=== PATIENT | male | born 1965 | race Caucasian/White ===

== ENCOUNTER 2024-04-01 00:36 | Emergency (ER) | payer OTHER ==
[2024-04-01 01:02] VITALS: BP 162/116; PULSE 102; RESP 20; TEMP 97.8
--- NOTE | 2024-04-01 01:28 | ED ---
Alcohol HPI - General Chief Complaint: Head Injury Stated Complaint: Head Lac, Usp Clearance Time Seen by Provider: 04/01/24 01:19 Source: patient, RN notes reviewed, old records reviewed Mode of arrival: ambulatory Limitations: no limitations - History of Present Illness Initial Comments: This is a 59-year-old male to the ER for evaluation of unknown head injury with occipital head laceration likely positive intoxication minimal bleeding but on reliable story. Patient is brought in by the police department for usp clearance Complaint: alcohol intoxication (Injury) Last Drink: unknown -: hour(s) Previous Visits for Alcohol Intoxication?: No Recent Trauma: Yes Associated Symptoms: denies other symptoms Treatments Prior to Arrival: none Chronic Alcohol Use: Yes - Related Data Allergies Allergy/AdvReac Type Severity Reaction Status Date / Time No Known Allergies Allergy Verified 04/01/24 00:55 Review of Systems ROS Statement: Those systems with pertinent positive or pertinent negative responses have been documented in the HPI. ROS Other: All systems not noted in ROS Statement are negative. Past Medical History Past Medical History: Unable to Obtain History of Any Multi-Drug Resistant Organisms: None Reported Past Surgical History: Unable to Obtain Past Psychological History: No Psychological Hx Reported Smoking Status: Current every day smoker Past Alcohol Use History: Heavy Past Drug Use History: None Reported General Exam Limitations: no limitations General appearance: alert, in no apparent distress, appears intoxicated Head exam: Present: atraumatic, normocephalic, normal inspection, other (Scalp laceration) Eye exam: Present: normal appearance, PERRL, EOMI. Absent: scleral icterus, conjunctival injection, periorbital swelling ENT exam: Present: normal exam, mucous membranes moist Neck exam: Present: normal inspection. Absent: tenderness, meningismus, lymphadenopathy Respiratory exam: Present: normal lung sounds bilaterally. Absent: respiratory distress, wheezes, rales, rhonchi, stridor Cardiovascular Exam: Present: regular rate, normal rhythm, normal heart sounds. Absent: systolic murmur, diastolic murmur, rubs, gallop, clicks GI/Abdominal exam: Present: soft, normal bowel sounds. Absent: distended, tenderness, guarding, rebound, rigid Extremities exam: Present: normal inspection, full ROM, normal capillary refill. Absent: tenderness, pedal edema, joint swelling, calf tenderness Back exam: Present: normal inspection Neurological exam: Present: alert, oriented X3, CN II-XII intact Psychiatric exam: Present: normal affect, normal mood Skin exam: Present: warm, dry, intact, normal color. Absent: rash Course Vital Signs 04/01/24 00:56 Temperature 97.8 F Pulse Rate 102 H Respiratory 20 Rate Blood Pressure 162/116 O2 Sat by Pulse 94 L Oximetry - Reevaluation(s) Reevaluation #1: 04/01/24 03:47 Medical records reviewed Reevaluation #2: 04/01/24 03:47 Patient has no change in symptoms Reevaluation #3: 04/01/24 03:47 Patient informed of results questions answered Reevaluation #4: Was pt. sent in by a medical professional or institution (, JEANNIE, NETSUITE CONSULTANT, urgent care, hospital, or detention...) When possible be specific @ -no Did you speak to anyone other than the patient for history (EMS, parent, family, police, friend...)? What history was obtained from this source @ -no Did you review nursing and triage notes (agree or disagree)? Why? @ -agree Are old charts reviewed (outside hosp., previous admission, EMS record, old EKG, old radiological studies, urgent care reports/EKG's, detention records)? Report findings @ -yes Differential Diagnosis (chest pain, altered mental status, abdominal pain women, abdominal pain men, vaginal bleeding, weakness, fever, dyspnea, syncope, headache, dizziness, GI bleed, back pain, seizure, CVA, palpatations, mental health, musculoskeletal)? @ -prior EKG interpreted by me (3pts min.). @ -yes X-rays interpreted by me (1pt min.). @ -yes negative for acute disease CT interpreted by me (1pt min.). @ -no U/S interpreted by me (1pt. min.). @ -no What testing was considered but not performed or refused? (CT, X-rays, U/S, labs)? Why? @ -none What meds were considered but not given or refused? Why? @ -none Did you discuss the management of the patient with other professionals (professionals i.e. JEANNIE Suarez, NETSUITE CONSULTANT, lab, RT, psych nurse, case management social worker, sock folder, teacher, hospital chief financial officer, residential case manager)? Give summary @ -no Was smoking cessation discussed for >3mins.? @ -no Was critical care preformed (if so, how long)? @ -no Were there social determinants of health that impacted care today? How? (Homelessness, low income, unemployed, alcoholism, drug addiction, transportation, low edu. Level, literacy, decrease access to med. care, usp, rehab)? @ -none Was there de-escalation of care discussed even if they declined (Discuss DNR or withdrawal of care, Hospice)? DNR status @ -no What co-morbidities impacted this encounter? (DM, HTN, Smoking, COPD, CAD, Cancer, CVA, ARF, Chemo, Hep., AIDS, mental health diagnosis, sleep apnea, morbid obesity)? @ -none Was patient admitted / discharged? Hospital course, mention meds given and route, prescriptions, significant lab abnormalities, going to OR and other pertinent info. @ - Undiagnosed new problem with uncertain prognosis? @ -no Drug Therapy requiring intensive monitoring for toxicity (Heparin, Nitro, Insulin, Cardizem)? @ -no Were any procedures done? @ -no Diagnosis/symptom? @ - Acute, or Chronic, or Acute on Chronic? @ -Acute Uncomplicated (without systemic symptoms) or Complicated (systemic symptoms)? @ -Complicated Side effects of treatment? @ -no Exacerbation, Progression, or Severe Exacerbation? @ -exacerbation Poses a threat to life or bodily function? How? (Chest pain, USA, OR, pneumonia, PE, COPD, DKA, ARF, appy, cholecystitis, CVA, Diverticulitis, Homicidal, Suicidal, threat to staff... and all critical care pts) @ -yes Procedures - Laceration Laceration #1 Consent Obtained: verbal consent Site: scalp Size (cm): 2 Description: linear Depth: simple, single layer Size of Sutures: other (Staple) Technique: simple, interrupted Complications: pain Medical Decision Making - Medical Decision Making 59 male to ER with occipital scalp laceration which is repaired here with a staple, patient has normal CT scan here in the ER and can be discharged, clear for incarceration - Radiology Data Radiology results: report reviewed (CT brain C-spine is negative for acute disease), image reviewed Disposition Clinical Impression: Closed head injury, Laceration of head Disposition: HOME SELF-CARE Condition: Good Instructions (If sedation given, give patient instructions): Head Injury (ED), Head Laceration (ED) Is patient prescribed a controlled substance at d/c from ED?: No Referrals: None,Stated [REFERRING] - 1-2 days Time of Disposition: 02:45
--- NOTE | 2024-04-01 02:31 | CT ---
EXAM: CT Head Without Intravenous Contrast CLINICAL HISTORY: ITS.REASON CT Reason: pain TECHNIQUE: Axial computed tomography images of the head/brain without intravenous contrast. CTDI is 45.2 mGy and DLP is 1113 mGy-cm. This CT exam was performed using one or more of the following dose reduction techniques: automated exposure control, adjustment of the mA and/or kV according to patient size, and/or use of iterative reconstruction technique. COMPARISON: No relevant prior studies available. FINDINGS: Brain: Mild parenchymal volume loss. Mild chronic small vessel ischemic change. Adams-white matter differentiation maintained. No hemorrhage, mass effect, parenchymal edema, or midline shift. Ventricles: Unremarkable. No hydrocephalus. Bones/joints: Unremarkable. No acute fracture. Soft tissues: Unremarkable. Vasculature: Intracranial atherosclerosis. Sinuses: Unremarkable as visualized. Mastoid air cells: Unremarkable as visualized. No mastoid effusion. IMPRESSION: No acute intracranial process. EXAM: CT Cervical Spine Without Intravenous Contrast CLINICAL HISTORY: ITS.REASON CT Reason: pain TECHNIQUE: Axial computed tomography images of the cervical spine without intravenous contrast. CTDI is 9.4 mGy and DLP is 296.4 mGy-cm. This CT exam was performed using one or more of the following dose reduction techniques: automated exposure control, adjustment of the mA and/or kV according to patient size, and/or use of iterative reconstruction technique. COMPARISON: No relevant prior studies available. FINDINGS: Vertebrae: Unremarkable. No acute fracture. No traumatic subluxation. Discs/spinal canal/neural foramina: Mild disc and uncovertebral joint degeneration in the cervical spine. No significant central canal stenosis. Mild multilevel foraminal narrowing. Soft tissues: Unremarkable. Vasculature: Carotid calcifications. Lung apices: Central lobular emphysema. Calcified granuloma right upper lobe. IMPRESSION: No acute findings in the cervical spine.
== END 2024-04-01 03:37 | disposition home or self-care (01) ==
LOC: EC 00:36
DX: S01.01XA Laceration without foreign body of scalp, initial encounter (principal); F17.200 Nicotine dependence, unspecified, uncomplicated; X58.XXXA Exposure to other specified factors, initial encounter
CPT/HCPCS: 12001; 70450; 72125; 99283

== ENCOUNTER 2024-04-08 08:04 | Observation (INO) | payer OTHER ==
--- NOTE | 2024-04-08 08:30 | ED ---
General Adult HPI - General Chief complaint: Alcohol Stated complaint: Mental Health/Detox Time Seen by Provider: 04/08/24 08:21 Source: patient, police, RN notes reviewed Mode of arrival: ambulatory Limitations: no limitations - History of Present Illness Initial comments: This is a 69-year-old male who presents to the emergency department for increased hallucinations and alcohol withdrawal. Patient presents with a chief digital officer from [facility]. He has been in their custody for the last 4 days. Patient has reportedly been experiencing increased hallucinations as a result of alcohol withdrawals. Patient states t hat it has been 3 weeks since his last drink, however he was arrested for operating a vehicle while intoxicated. He is currently on the Valium protocol but seems to be getting worse. He is also not sleeping. He was also started on clonidine as well. Patient has no known medical history or known history of mental health problems. asset protection officer states that they wanted him evaluated for Wernicke Korsakoff syndrome. - Related Data Home Medications Medication Instructions Recorded Confirmed Thiamine [Vitamin B-1] 100 mg PO DAILY 04/08/24 04/08/24 cloNIDine HCL 0.1 mg PO TID PRN 04/08/24 04/08/24 diazePAM 10 mg PO BID 04/08/24 04/08/24 Allergies Allergy/AdvReac Type Severity Reaction Status Date / Time No Known Allergies Allergy Verified 04/08/24 14:22 Review of Systems ROS Statement: Those systems with pertinent positive or pertinent negative responses have been documented in the HPI. ROS Other: All systems not noted in ROS Statement are negative. Past Medical History Past Medical History: No Reported History History of Any Multi-Drug Resistant Organisms: None Reported Past Surgical History: Hernia Repair Past Psychological History: Unable to Obtain Smoking Status: Current some day smoker Past Alcohol Use History: Abuse, Daily, Heavy Past Drug Use History: None Reported General Exam Limitations: no limitations General appearance: alert, in no apparent distress Head exam: Present: atraumatic, normocephalic, normal inspection Eye exam: Present: normal appearance, PERRL, EOMI. Absent: scleral icterus, conjunctival injection, periorbital swelling Respiratory exam: Present: normal lung sounds bilaterally. Absent: respiratory distress, wheezes, rales, rhonchi, stridor Cardiovascular Exam: Present: regular rate, normal rhythm, normal heart sounds. Absent: systolic murmur, diastolic murmur, rubs, gallop, clicks Neurological exam: Present: alert Psychiatric exam: Present: normal affect, normal mood Skin exam: Present: warm, dry, intact, normal color. Absent: rash Course Vital Signs 04/08/24 04/08/24 04/08/24 08:11 09:18 11:08 Temperature 98.0 F Pulse Rate 88 72 Respiratory 18 18 Rate Blood Pressure 131/97 147/109 91/71 O2 Sat by Pulse 98 96 Oximetry 04/08/24 04/08/24 12:42 14:51 Temperature 98 F 98 F Pulse Rate 90 90 Respiratory 18 18 Rate Blood Pressure 131/94 124/78 O2 Sat by Pulse 98 99 Oximetry Medical Decision Making - Medical Decision Making This is a 69 year old male who presents to the emergency department for halluci nations and alcohol withdrawals. Was pt. sent in by a medical professional or institution? @ -[facility] Did you speak to anyone other than the patient for history? @ -The chief digital officer and documentation from [facility] provided the majority of the information. Did you review nursing and triage notes? @ -Yes, and I agree, it is accurate with regards to the patient's symptoms. Were old charts reviewed? @ -No Differential Diagnosis? @ -Differential Alcohol Withdrawals Sympathomimetic syndrome, anti-muscarinic syndrome, serotonin syndrome, neuroleptic malignant syndrome, thyrotoxicosis, encephalitis, acute psychosis, hypoglycemia, trauma, sepsis. This is not meant to be an all-inclusive list. EKG interpreted by me (3pts min.)? @ -EKG interpreted by me demonstrating the following: Sinus rhythm. Ventricular rate 69 bpm, NC interval 173 ms, QRS duration 86 ms, QTc 442 ms. X-rays interpreted by me (1pt min.)? @ -Not obtained CT interpreted by me (1pt min.)? @ -Not obtained U/S interpreted by me (1pt. min.)? @ -Not obtained What testing was considered but not performed? (CT, X-rays, U/S, labs)? Why? @ -None What meds were considered but not given? Why? @ -None Did you discuss the management of the patient with other professionals? @ -Yes, Dr. Torres, who accepts the patient for admission. Did you reconcile home meds? @ -No Was smoking cessation discussed for >3mins.? @ -No Was critical care preformed (if so, how long)? @ -No Were there social determinant of health that impacted care today? How? (Homelessness, low income, unemployed, alcoholism, drug addiction, transportation, low edu. Level, literacy, decrease access to med. care, alf, rehab)? @ -Alcoholism, contributing to the withdrawal symptoms that the patient is experiencing today Was there de-escalation of care discussed even if they declined? (Discuss DNR or withdrawal of care, Hospice)? @ -No What co-morbidities impacted this encounter? (DM, HTN, Smoking, COPD, CAD, Cancer, CVA, Hep., AIDS, mental health diagnosis, sleep apnea, morbid obesity)? @ -Alcoholism Was patient admitted / discharged? @ -Admitted. Lab work demonstrates hyponatremia with a sodium of 129. LFTs are mildly elevated likely secondary to alcohol abuse. Urinalysis negative for signs of infection. Urine drug screen positive for benzodiazepines, which is consistent with patient receiving Valium for alcohol withdrawals in the alf. Patient was actively hallucinating in the emergency department and appeared to be disoriented and confused. He has also been putting multiple objects in his mouth. Given that his symptoms seem to be worsening despite use of Valium, patient admitted to medicine for alcohol withdrawal delirium. [facility] protocol initiated. Case discussed with ED attending, Dr. Petersen. Undiagnosed new problem with uncertain prognosis? @ -None Drug Therapy requiring intensive monitoring for toxicity (Heparin, Nitro, In sulin, Cardizem)? @ -None Were any procedures done? @ -None Diagnosis/symptom? @ -Alcohol withdrawal delirium Acute, or Chronic, or Acute on Chronic? @ -Acute Uncomplicated (without systemic symptoms) or Complicated (systemic symptoms)? @ -Complicated Side effects of treatment? @ -None Exacerbation, Progression, or Severe Exacerbation] @ -Not applicable Poses a threat to life or bodily function? @ -Yes, can lead to DTs which can be fatal. - Lab Data Result diagrams: 04/08/24 08:24 04/08/24 08:24 Lab Results 04/08/24 04/08/24 04/08/24 Range/Units 08:24 08:24 08:24 WBC 7.0 (3.8-10.6) k/uL RBC 4.16 L (4.30-5.90) m/uL Hgb 14.3 (13.0-17.5) gm/dL Hct 41.8 (39.0-53.0) % MCV 100.7 H (80.0-100.0) fL MCH 34.5 (25.0-35.0) pg MCHC 34.3 (31.0-37.0) g/dL RDW 12.5 (11.5-15.5) % Plt Count 209 (150-450) k/uL MPV 7.6 Neutrophils % 69 % Lymphocytes % 17 % Monocytes % 11 % Eosinophils % 1 % Basophils % 0 % Neutrophils # 4.8 (1.3-7.7) k/uL Lymphocytes # 1.2 (1.0-4.8) k/uL Monocytes # 0.7 (0-1.0) k/uL Eosinophils # 0.1 (0-0.7) k/uL Basophils # 0.0 (0-0.2) k/uL PT 10.9 (10.0-12.5) sec INR 1.0 (<1.2) Sodium 129 L (137-145) mmol/L Potassium 4.2 (3.5-5.1) mmol/L Chloride 98 (98-107) mmol/L Carbon Dioxide 26 (22-30) mmol/L Anion Gap 5 mmol/L BUN 10 (9-20) mg/dL Creatinine 0.67 (0.66-1.25) mg/dL Est GFR (CKD-EPI)AfAm >90 (>60 ml/min/1.73 sqM) Est GFR (CKD-EPI)NonAf >90 (>60 ml/min/1.73 sqM) Glucose 95 (74-99) mg/dL Calcium 9.6 (8.4-10.2) mg/dL Phosphorus 4.4 (2.5-4.5) mg/dL Magnesium 1.8 (1.6-2.3) mg/dL Total Bilirubin 1.6 H (0.2-1.3) mg/dL AST 70 H (17-59) U/L ALT 34 (4-49) U/L Alkaline Phosphatase 58 (38-126) U/L Total Protein 6.8 (6.3-8.2) g/dL Albumin 4.2 (3.5-5.0) g/dL Urine Color Urine Appearance (Clear) Urine pH (5.0-8.0) Ur Specific Jackson (1.001-1.035) Urine Protein (Negative) Urine Glucose (UA) (Negative) Urine Ketones (Negative) Urine Blood (Negative) Urine Nitrite (Negative) Urine Bilirubin (Negative) Urine Urobilinogen (<2.0) mg/dL Ur Leukocyte Esterase (Negative) Urine Opiates Screen (NotDetected) Ur Oxycodone Screen (NotDetected) Urine Methadone Screen (NotDetected) Ur Barbiturates Screen (NotDetected) U Tricyclic Antidepress (NotDetected) Ur Phencyclidine Scrn (NotDetected) Ur Amphetamines Screen (NotDetected) U Methamphetamines Scrn (NotDetected) U Benzodiazepines Scrn (NotDetected) Urine Cocaine Screen (NotDetected) U Marijuana (THC) Screen (NotDetected) Serum Alcohol <10 mg/dL 04/08/24 Range/Units 10:24 WBC (3.8-10.6) k/uL RBC (4.30-5.90) m/uL Hgb (13.0-17.5) gm/dL Hct (39.0-53.0) % MCV (80.0-100.0) fL MCH (25.0-35.0) pg MCHC (31.0-37.0) g/dL RDW (11.5-15.5) % Plt Count (150-450) k/uL MPV Neutrophils % % Lymphocytes % % Monocytes % % Eosinophils % % Basophils % % Neutrophils # (1.3-7.7) k/uL Lymphocytes # (1.0-4.8) k/uL Monocytes # (0-1.0) k/uL Eosinophils # (0-0.7) k/uL Basophils # (0-0.2) k/uL PT (10.0-12.5) sec INR (<1.2) Sodium (137-145) mmol/L Potassium (3.5-5.1) mmol/L Chloride (98-107) mmol/L Carbon Dioxide (22-30) mmol/L Anion Gap mmol/L BUN (9-20) mg/dL Creatinine (0.66-1.25) mg/dL Est GFR (CKD-EPI)AfAm (>60 ml/min/1.73 sqM) Est GFR (CKD-EPI)NonAf (>60 ml/min/1.73 sqM) Glucose (74-99) mg/dL Calcium (8.4-10.2) mg/dL Phosphorus (2.5-4.5) mg/dL Magnesium (1.6-2.3) mg/dL Total Bilirubin (0.2-1.3) mg/dL AST (17-59) U/L ALT (4-49) U/L Alkaline Phosphatase (38-126) U/L Total Protein (6.3-8.2) g/dL Albumin (3.5-5.0) g/dL Urine Color Yellow Urine Appearance Clear (Clear) Urine pH 6.0 (5.0-8.0) Ur Specific Jackson 1.012 (1.001-1.035) Urine Protein Negative (Negative) Urine Glucose (UA) Negative (Negative) Urine Ketones Negative (Negative) Urine Blood Negative (Negative) Urine Nitrite Negative (Negative) Urine Bilirubin Negative (Negative) Urine Urobilinogen <2.0 (<2.0) mg/dL Ur Leukocyte Esterase Negative (Negative) Urine Opiates Screen Not Detected (NotDetected) Ur Oxycodone Screen Not Detected (NotDetected) Urine Methadone Screen Not Detected (NotDetected) Ur Barbiturates Screen Not Detected (NotDetected) U Tricyclic Antidepress Not Detected (NotDetected) Ur Phencyclidine Scrn Not Detected (NotDetected) Ur Amphetamines Screen Not Detected (NotDetected) U Methamphetamines Scrn Not Detected (NotDetected) U Benzodiazepines Scrn Detected H (NotDetected) Urine Cocaine Screen Not Detected (NotDetected) U Marijuana (THC) Screen Not Detected (NotDetected) Serum Alcohol mg/dL Disposition Clinical Impression: Alcohol withdrawal delirium Disposition: ADMITTED IP TO THIS HOSP
[2024-04-08] MEDS ORDERED: LORazepam 2 MG/ML INJ IV PRN (08:41)
[2024-04-08] MEDS ORDERED: LORazepam 1 MG TAB PO PRN (08:41)
[2024-04-08 09:05] LABS: Prothrombin Time 10.9 sec (10.0-12.5)
[2024-04-08] MEDS: THIAMINE 100 MG/ML 2 ML VIAL IM STA (09:08)
[2024-04-08] MEDS: MULTIVITAMINS, THERA 1 EACH TAB PO SCH (09:08)
[2024-04-08] MEDS: FOLIC ACID 1 MG TAB PO SCH (09:08)
[2024-04-08 09:11] LABS: ALT 34 U/L (4-49); African American GFR (CKD) >90 (>60 ml/min/1.73 sqM); Albumin 4.2 g/dL (3.5-5.0); Alcohol <10 mg/dL; Anion Gap 5 mmol/L; Blood Urea Nitrogen 10 mg/dL (9-20); Calcium 9.6 mg/dL (8.4-10.2); Carbon Dioxide 26 mmol/L (22-30); Chloride 98 mmol/L (98-107); Glucose 95 mg/dL (74-99); Non-African American GFR(CKD) >90 (>60 ml/min/1.73 sqM); Phosphorus 4.4 mg/dL (2.5-4.5); Sodium 129 mmol/L (137-145); Total Bilirubin 1.6 mg/dL (0.2-1.3); Total Protein 6.8 g/dL (6.3-8.2)
[2024-04-08] MEDS: SODIUM CHLORIDE 0.9% 1,000 ML IV STA (09:13)
[2024-04-08 09:14] LABS: Magnesium 1.8 mg/dL (1.6-2.3); Potassium 4.2 mmol/L (3.5-5.1)
[2024-04-08 09:15] LABS: AST 70 U/L (17-59); Alkaline Phosphatase 58 U/L (38-126)
[2024-04-08 09:33] LABS: Basophils % (A) 0 %; Eosinophils # (A) 0.1 k/uL (0-0.7); Eosinophils % (A) 1 %; HCT 41.8 % (39.0-53.0); HGB 14.3 gm/dL (13.0-17.5); Lymphocytes # (A) 1.2 k/uL (1.0-4.8); Lymphocytes % (A) 17 %; MCH 34.5 pg (25.0-35.0); MCHC 34.3 g/dL (31.0-37.0); MCV 100.7 fL (80.0-100.0); Mean Platelet Volume 7.6; Monocytes # (A) 0.7 k/uL (0-1.0); Monocytes % (A) 11 %; Neutrophils # (A) 4.8 k/uL (1.3-7.7); Neutrophils % (A) 69 %; Platelet Count 209 k/uL (150-450); RBC 4.16 m/uL (4.30-5.90); RDW 12.5 % (11.5-15.5)
[2024-04-08] MEDS: LORazepam 2 MG/ML INJ IV PRN ×3 (10:13→15:18)
[2024-04-08 10:32] LABS: Appearance,Urine Clear (Clear); Bilirubin,Urine Negative (Negative); Blood,Urine Negative (Negative); Color,Urine Yellow; Glucose,Urine (UA) Negative (Negative); Ketones,Urine Negative (Negative); Leukocyte Esterase,Urine Negative (Negative); Nitrite,Urine Negative (Negative); Protein,Urine Negative (Negative); Specific Gravity,Urine 1.012 (1.001-1.035); Urobilinogen,Urine <2.0 mg/dL (<2.0)
[2024-04-08 10:51] LABS: Amphetamine Screen,Urine Not Detected (NotDetected); Barbiturate Screen,Urine Not Detected (NotDetected); Benzodiazepines Screen,Urine Detected (NotDetected); Cocaine Screen,Urine Not Detected (NotDetected); Methadone Screen, Urine Not Detected (NotDetected); Opiate Screen,Urine Not Detected (NotDetected); Oxycodone Screen, Urine Not Detected (NotDetected); Phencyclidine Screen,Urine Not Detected (NotDetected); Tricyclic Antidepressant,Urine Not Detected (NotDetected); Urn Cannabinoid Scrn Not Detected (NotDetected)
[2024-04-08] MEDS ORDERED: NALOXONE 0.4 MG/ML 1 ML VIAL IV PRN (11:34)
[2024-04-08] MEDS ORDERED: KETOROLAC 15 MG/ML 1 ML VIAL IVP PRN (11:34)
[2024-04-08] MEDS ORDERED: ONDANSETRON 4 MG/2 ML VIAL IVP PRN (11:34)
[2024-04-08] MEDS ORDERED: IBUPROFEN 400 MG TAB PO PRN (11:34)
[2024-04-08] MEDS ORDERED: ACETAMINOPHEN TAB 325 MG TAB PO PRN (11:34)
--- NOTE | 2024-04-08 14:07 | P.PN ---
Subjective Progress Note Date: 04/08/24 Hospital course Patient is a 53-year-old female with PMH of COPD with chronic hypoxemic respiratory failure (on 2 L home oxygen), DVT on Eliquis, and hypertension came to the ER with progressively worsening shortness of breath. Patient woke up this morning feeling short of breath with some chest tightness worse on exertion. Patient reports that it was a challenge for her to get up and take few steps to get to the bathroom. Patient also endorsed lightheadedness and almost felt like passing out because of worsening dyspnea. Denies loss of consciousness, head trauma, or fall. Patient called the EMS who found her O2 sat in 60s. Patient reported that she is on a continuous home oxygen therapy which is 2 L by nasal cannula and has been stable with no increase in oxygen level. Patient denies overt chest pain, palpitation, and peripheral edema. No recent travel. No recent upper respite tract infection. However she has been feeling mild chills with tremors for the last 1 week. Patient has a history of alcohol and tobacco dependence. Patient currently smokes a pack every other day; used to smoke 3 packs/day x 30 years. She drinks 1 pint of vodka a day x 6 years. Her last drink was yesterday. Patient denies auditory, visual, tactile hallucination. Denies seizure, tongue bite, urinary or bowel incontinence. CT angiogram of the chest shows no evidence for pulmonary embolus. Diffuse patchy groundglass infiltrates throughout with moderate diffuse bronchial wall thickening. Concerning for atypical pneumonia. Patient also did have a fever in the ED of 100.7. Patient was started on broad-spectrum antibiotics with IV Rocephin and azithromycin. Patient was also started on IV steroids and breathing treatments for COPD exacerbation. Patient also started on CIWA protocol. Subjective Patient seen this morning. She states that her breathing is improving. She states that she still having some hallucinations. 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 Patient on 2 L home O2 at home Continue with IV Solu-Medrol 60 mg every 6 hours Continue with DuoNeb Wean O2 as tolerated. Patient currently on 3 L nasal cannula Community-acquired pneumonia Sepsis on admission Continue with azithromycin 1 g every 24 hours and azithromycin 500 mg every 24 hours Follow-up on blood culture Alcohol withdrawal CIWA protocol Mild transaminitis likely due to alcoholic hepatitis Trend CMP Anxiety and depression Continue psych meds Hypertension Continue losartan 50 mg p.o. daily Lymphedema Hold off on Lasix for now due to sepsis Hyperlipidemia Continue Lipitor History of DVT Continue with Eliquis DVT prophylaxis: Eliquis Objective - Vital Signs Vital signs: Vital Signs Temp 98 F 04/08/24 12:42 Pulse 90 04/08/24 12:42 Resp 18 04/08/24 12:42 BP 131/94 04/08/24 12:42 Pulse Ox 98 04/08/24 12:42 FiO2 Intake & Output 04/07/24 04/08/24 04/08/24 18:59 06:59 18:59 Weight 82.554 kg - Labs CBC & Chem 7: 04/08/24 08:24 04/08/24 08:24 Labs: Abnormal Lab Results - Last 24 Hours (Table) 04/08/24 04/08/24 04/08/24 Range/Units 08:24 08:24 10:24 RBC 4.16 L (4.30-5.90) m/uL MCV 100.7 H (80.0-100.0) fL Sodium 129 L (137-145) mmol/L Total Bilirubin 1.6 H (0.2-1.3) mg/dL AST 70 H (17-59) U/L U Benzodiazepines Scrn Detected H (NotDetected)
--- NOTE | 2024-04-08 14:40 | P.HPIM ---
History of Present Illness H&P Date: 04/08/24 Chief Complaint: Agitation and hallucinations Patient is a 69-year-old male with past medical history of alcohol abuse who presents with a staff mine warfare officer from [facility] department with symptoms of alcohol withdrawal and hallucinations. Patient was in their custody for 4 days. In the ED patient was somnolent and lethargic so no history could be obtained from the patient. Patient had just been given IV Ativan. History was obtained from the officer who was at bedside. Per officer when patient was in their custody he was being treated for alcohol withdrawal as per the Valium protocol. However his symptoms continued to worsen therefore he was brought into the ED. ROS: Unable to obtain at this time as patient is lethargic and somnolent Physical exam General: [Does not appear to be in any acute distress]. Eye: [No scleral icterus]. HENT: [Normocephalic, clear tympanic membranes, normal hearing, moist oral mucosa, no scleral icterus, no sinus tenderness]. Neck: [Supple, non-tender, no carotid bruits, no JVD, no lymphadenopathy]. Lungs: [Clear to auscultation and percussion, non-labored respiration]. Heart: [Normal rate, regular rhythm, no murmur, gallop or edema]. Abdomen: [Soft, non-tender, non-distended, normal bowel sounds, no masses]. Psychiatric: [Patient currently somnolent and lethargic]. Assessment and plan Alcohol withdrawal Continue with CIWA protocol Continue with thiamine Continue folic acid When patient is more awake and alert will need to consumer credit counselor the patient on alcohol cessation I reviewed patient's medical records from the correctional facility and patient has no past medical history. DVT prophylaxis: Encourage early ambulation Past Medical History Past Medical History: No Reported History History of Any Multi-Drug Resistant Organisms: None Reported Past Surgical History: Hernia Repair Past Psychological History: Unable to Obtain Smoking Status: Current some day smoker Past Alcohol Use History: Abuse, Daily, Heavy Past Drug Use History: None Reported Medications and Allergies Home Medications Medication Instructions Recorded Confirmed Type Thiamine [Vitamin B-1] 100 mg PO DAILY 04/08/24 04/08/24 History cloNIDine HCL 0.1 mg PO TID PRN 04/08/24 04/08/24 History diazePAM 10 mg PO BID 04/08/24 04/08/24 History Allergies Allergy/AdvReac Type Severity Reaction Status Date / Time No Known Allergies Allergy Verified 04/08/24 14:22 Physical Exam Osteopathic Statement: *. No significant issues noted on an osteopathic structural exam other than those noted in the History and Physical/Consult. Vitals: Vital Signs Temp Pulse Resp BP Pulse Ox 04/08/24 12:42 98 F 90 18 131/94 98 04/08/24 11:08 91/71 04/08/24 09:18 72 18 147/109 96 04/08/24 08:11 98.0 F 88 18 131/97 98 Intake and Output 04/07/24 04/08/24 04/08/24 22:59 06:59 14:59 Other: Weight 82.554 kg Results CBC & Chem 7: 04/08/24 08:24 04/08/24 08:24 Labs: Abnormal Lab Results - Last 24 Hours (Table) 04/08/24 04/08/24 04/08/24 Range/Units 08:24 08:24 10:24 RBC 4.16 L (4.30-5.90) m/uL MCV 100.7 H (80.0-100.0) fL Sodium 129 L (137-145) mmol/L Total Bilirubin 1.6 H (0.2-1.3) mg/dL AST 70 H (17-59) U/L U Benzodiazepines Scrn Detected H (NotDetected)
[2024-04-09 05:13] LABS: ALT 27 U/L (4-49); AST 46 U/L (17-59); African American GFR (CKD) >90 (>60 ml/min/1.73 sqM); Albumin 3.5 g/dL (3.5-5.0); Albumin/Globulin Ratio 1.4; Alkaline Phosphatase 72 U/L (38-126); Anion Gap 4 mmol/L; Blood Urea Nitrogen 7 mg/dL (9-20); Calcium 8.9 mg/dL (8.4-10.2); Carbon Dioxide 25 mmol/L (22-30); Chloride 105 mmol/L (98-107); Globulin 2.5 g/dL; Glucose 84 mg/dL (74-99); Non-African American GFR(CKD) >90 (>60 ml/min/1.73 sqM); Potassium 3.5 mmol/L (3.5-5.1); Sodium 134 mmol/L (137-145); Total Bilirubin 1.4 mg/dL (0.2-1.3)
[2024-04-09 08:44] LABS: Basophils # (A) 0.05 X 10*3/uL (0.00-0.10); Basophils % (A) 0.6 %; Eosinophils # (A) 0.11 X 10*3/uL (0.04-0.35); Eosinophils % (A) 1.3 %; HGB 13.1 g/dL (13.0-17.0); Lymphocytes # (A) 1.78 X 10*3/uL (0.90-5.00); Lymphocytes % (A) 21.8 %; MCH 33.8 pg (27.0-32.0); MCHC 33.6 g/dL (32.0-37.0); MCV 100.5 FL (80.0-97.0); Mean Platelet Volume 9.5 FL (9.5-12.2); Monocytes # (A) 1.03 X 10*3/uL (0.20-1.00); Monocytes % (A) 12.6 %; NRBC Per 100 WBC 0 X 10*3/uL (0.00-0.01); Neutrophils # (A) 5.15 X 10*3/uL (1.80-7.70); Neutrophils % (A) 63.3 %; Platelet Count 185 X 10*3/uL (140-440); RBC 3.88 X 10*6/uL (4.40-5.60); RDW 13.7 % (11.5-14.5); WBC 8.15 X 10*3/uL (4.50-10.00)
[2024-04-09] MEDS: PANTOPRAZOLE 40 MG/10 ML VIAL IV SCH (08:44)
[2024-04-09] MEDS: THIAMINE 100 MG TAB PO SCH (08:44)
--- NOTE | 2024-04-09 14:25 | P.PN ---
Subjective Progress Note Date: 04/09/24 Hospital course Patient is a 69-year-old male with past medical history of alcohol abuse who presents with a first aid officer from [facility]'s department with symptoms of alcohol withdrawal and hallucinations. Patient was in their custody for 4 days. In the ED patient was somnolent and lethargic so no history could be obtained from the patient. Patient had just been given IV Ativan. History was obtained from the officer who was at bedside. Per officer when patient was in their custody he was being treated for alcohol withdrawal as per the Valium protocol. However his symptoms continued to worsen therefore he was brought into the ED. patient was started on the CIWA protocol. Subjective Patient seen this morning. He does appear tremulous. He is AOx3 and is answering questions appropriately. Officer was at bedside. 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 At present patient can go on a Valium protocol to prevent withdrawal DVT prophylaxis: Encourage early ambulation I anticipate patient will be ready for discharge in the next 48 hours Objective - Vital Signs Vital signs: Vital Signs Temp 98.3 F 04/09/24 07:08 Pulse 58 L 04/09/24 07:35 Resp 17 04/09/24 07:35 BP 126/83 04/09/24 07:08 Pulse Ox 96 04/09/24 07:08 FiO2 Intake & Output 04/08/24 04/09/24 04/09/24 18:59 06:59 18:59 Intake Total 0 1420 Output Total 300 Balance 0 1120 Weight 82.554 kg Intake: Oral 0 1420 Output: Urine 300 Other: # Voids 2 - Labs CBC & Chem 7: 04/09/24 04:17 04/09/24 04:17 Labs: Abnormal Lab Results - Last 24 Hours (Table) 04/08/24 04/09/24 04/09/24 Range/Units 08:24 04:17 04:17 RBC 3.88 L (4.40-5.60) X 10*6/uL Hct 39.0 L (39.6-50.0) % MCV 100.5 H (80.0-97.0) FL MCH 33.8 H (27.0-32.0) pg Monocytes # 1.03 H (0.20-1.00) X 10*3/uL Sodium 134 L (137-145) mmol/L BUN 7 L (9-20) mg/dL Osmolality 270 L (275-295) mOsm/kg Total Bilirubin 1.4 H (0.2-1.3) mg/dL Total Protein 6.0 L (6.3-8.2) g/dL
[2024-04-10 07:44] VITALS: BP 138/85; PULSE 65; RESP 16; TEMP 98.3
[2024-04-10 08:51] LABS: Basophils # (A) 0.07 X 10*3/uL (0.00-0.10); Basophils % (A) 0.9 %; Eosinophils # (A) 0.11 X 10*3/uL (0.04-0.35); Eosinophils % (A) 1.5 %; HCT 39.5 % (39.6-50.0); HGB 13.4 g/dL (13.0-17.0); Lymphocytes # (A) 1.82 X 10*3/uL (0.90-5.00); Lymphocytes % (A) 24.7 %; MCH 34.2 pg (27.0-32.0); MCHC 33.9 g/dL (32.0-37.0); MCV 100.8 FL (80.0-97.0); Mean Platelet Volume 9.3 FL (9.5-12.2); Monocytes # (A) 0.97 X 10*3/uL (0.20-1.00); Monocytes % (A) 13.1 %; NRBC Per 100 WBC 0 X 10*3/uL (0.00-0.01); Neutrophils # (A) 4.39 X 10*3/uL (1.80-7.70); Neutrophils % (A) 59.5 %; Platelet Count 193 X 10*3/uL (140-440); RBC 3.92 X 10*6/uL (4.40-5.60); WBC 7.38 X 10*3/uL (4.50-10.00)
[2024-04-10 08:59] LABS: ALT 22 U/L (10-49); AST 27 U/L (14-35); Albumin 3.7 g/dL (3.8-4.9); Albumin/Globulin Ratio 1.85 Ratio (1.60-3.17); Alkaline Phosphatase 89 U/L (41-126); Blood Urea Nitrogen 8.4 mg/dL (9.0-27.0); Calcium 8.7 mg/dL (8.7-10.3); Carbon Dioxide 23.8 mmol/L (21.6-31.8); Chloride 104 mmol/L (96-109); Glucose 112 mg/dL (70-110); Magnesium 1.9 mg/dL (1.5-2.4); Potassium 3.9 mmol/L (3.5-5.5); Sodium 138 mmol/L (135-145); Total Bilirubin 0.3 mg/dL (0.3-1.2); Total Protein 5.7 g/dL (6.2-8.2)
--- NOTE | 2024-04-10 10:15 | P.DS ---
Providers Date of admission: 04/08/24 11:09 Expected date of discharge: 04/10/24 Attending physician: Rylee Torres MD Primary care physician: Stated None Hospital Course: Discharge Diagnosis: Alcohol withdrawal Alcohol dependence Nicotine dependence Hyponatremia, hypovolemic Hyperbilirubinemia Hospital Course: 59-year-old male with history of alcohol dependence, nicotine dependence, currently incarcerated presented with symptoms of alcohol withdrawal and hallucinations. Patient was in their custody for 4 days. In the ED patient was somnolent and lethargic so no history could be obtained from the patient. Patient had just been given IV Ativan. History was obtained from the officer who was at bedside. Per officer when patient was in their custody he was being treated for alcohol withdrawal as per the Valium protocol. However his symptoms continued to worsen therefore he was brought into the ED. while in the ED here, patient's vitals have been within normal limits. Initial laboratory test showed sodium of 129, creatinine 0.67, total bili 1.6, AST 70, ALT 34, osmolality 270, urine osmolality 385, serum alcohol negative, toxicology positive for benzos. EKG on arrival showed normal sinus rhythm With LVH. Patient was monitored closely for further alcohol withdrawal symptoms and was put on CIWA protocol. Has not been requiring any more Ativan. Sodium improved with fluids. [facility]. Patient seen and examined at bedside. Vital signs reviewed and stable. General: Nontoxic, no distress, appears at stated age Derm: Warm, dry Head: Atraumatic, normocephalic, symmetric Eyes: EOMI, no lid lag, anicteric sclera Mouth: No lip lesion, mucus membranes moist Cardiovascular: S1S2 reg, no murmur Lungs: CTA bilateral, no rhonchi, no rales, no accessory muscle use Abdominal: Soft, nontender to palpation, no guarding, no appreciable organomegaly Ext: No gross muscle atrophy, no edema, no contractures Neuro: CN II-XI grossly intact, no focal neuro deficits Psych: Alert, oriented, appropriate affect A total of 33 minutes of time were spent preparing this complex discharge summary. Patient was discharged on 04/10/2024 at 1001. Patient Condition at Discharge: Stable Plan - Discharge Summary New Discharge Prescriptions: New Folic Acid 1 mg PO DAILY #90 tab Thiamine [Vitamin B-1] 100 mg PO DAILY #90 tab Discontinued diazePAM 10 mg PO BID cloNIDine HCL 0.1 mg PO TID PRN PRN Reason: BP/ANXIETY Thiamine [Vitamin B-1] 100 mg PO DAILY Discharge Medication List Folic Acid 1 mg PO DAILY #90 tab 04/10/24 [Rx] Thiamine [Vitamin B-1] 100 mg PO DAILY #90 tab 04/10/24 [Rx] Follow up Appointment(s)/Referral(s): None,Stated [Primary Care Provider] - 1-2 days Patient Instructions/Handouts: Alcohol Withdrawal (DC) Activity/Diet/Wound Care/Special Instructions: Please see your PCP. Discharge Disposition: OTHER INSTITUTION NOT DEFINED
== END 2024-04-10 12:03 | disposition other institution (70) ==
LOC: EC 08:04 → 4SSUR 11:09 → MERGE 11:09 → 4SSUR 13:55
PROVIDERS: ADMIT Family Medicine; ATTEND Family Medicine
DX: F10.230 Alcohol dependence with withdrawal, uncomplicated (principal); Y90.0 Blood alcohol level of less than 20 mg/100 ml; J44.1 Chronic obstructive pulmonary disease with (acute) exacerbation; J96.21 Acute and chronic respiratory failure with hypoxia; J44.0 Chronic obstructive pulmonary disease with (acute) lower respiratory infection; J18.9 Pneumonia, unspecified organism; A41.9 Sepsis, unspecified organism; K70.10 Alcoholic hepatitis without ascites; F32.A Depression, unspecified; F41.9 Anxiety disorder, unspecified; I89.0 Lymphedema, not elsewhere classified; E78.5 Hyperlipidemia, unspecified; I10 Essential (primary) hypertension; E86.1 Hypovolemia; E87.1 Hypo-osmolality and hyponatremia; F17.200 Nicotine dependence, unspecified, uncomplicated; Z86.718 Personal history of other venous thrombosis and embolism; Z99.81 Dependence on supplemental oxygen; Z79.01 Long term (current) use of anticoagulants; Z79.899 Other long term (current) drug therapy
CPT/HCPCS: 96376 ×3; 96361 ×3; 96375; 96374; 99285; 36415; 93005; 83930; 84425; 80053 ×3; 83735 ×2; 84100; 85025 ×3; 85610; 81003; 83935; 80306; 80320; G0378 ×3; J2060; J3411; J2470 ×2